=== PATIENT | female | born 1985 | race Caucasian/White ===

== ENCOUNTER 2020-03-10 15:33 | Inpatient (IN) | payer BC ==
[2020-03-10] MEDS ORDERED: ELECTROLYTE-148 SOLN 1,000 ML IV SCH (16:10)
[2020-03-10 16:32] VITALS: BMI 23.8
[2020-03-10] MEDS ORDERED: FENTANYL/BUPIVACAINE/NS/PF - PCEA - 50 ML DISP.SYRIN EP ONE (16:36)
[2020-03-10] MEDS ORDERED: OXYTOCIN 20 UNITS in 0.9% NS 20 UNIT/1,000 ML INFUS.BAG IV ONE ×2 (16:51→17:57)
[2020-03-10] MEDS ORDERED: LIDOCAINE HCL 1% PRESERVATIVE FREE - 30ML VIAL ONE (16:51)
[2020-03-10 16:55] LABS: INR 0.9 (0.83-1.09); PROTHROMBIN TIME (PATIENT) 10.6 SEC (9.7-13.0)
[2020-03-10 16:57] LABS: ACTIVATED PTT 24.6 SECONDS (25.2-36.5)
[2020-03-10 17:01] LABS: BASO % 0.3 % (0-2.0); EOS % 0.1 % (0-4.5); HEMATOCRIT 40.3 % (32.4-45.2); LYMPH % 14.4 % (8-40); MCH 34.1 pg (25.7-33.7); MCHC 34.7 g/dl (32.0-36.0); MEAN CELL VOLUME 98.4 fl (80-96); MEAN PLT VOLUME 9.9 fl (7.5-11.1); MONO % 7.9 % (3.8-10.2); NEUT % 77.3 % (42.8-82.8); PLATELET COUNT 162 K/MM3 (134-434); RBC 4.09 M/mm3 (3.60-5.2); RDW 13.2 % (11.6-15.6); WHITE BLOOD COUNT 8.6 K/mm3 (4.0-10.0)
[2020-03-10 17:09] LABS: BLOOD UREA NITROGEN 16.2 mg/dL (7-18); CREATININE 0.9 mg/dL (0.55-1.3); POTASSIUM 3.8 mmol/L (3.5-5.1)
[2020-03-10] MEDS ORDERED: BISACODYL 10 MG SUPP.RECT RC PRN (17:15)
[2020-03-10] MEDS ORDERED: WITCH HAZEL 50% (TUCKS) 40 PAD/JAR PAD TP PRN (17:15)
[2020-03-10] MEDS ORDERED: ACETAMINOPHEN 325 MG TABLET (FP) PO PRN (17:15)
[2020-03-10] MEDS ORDERED: BENZOCAINE 20% 57 GM BOTTLE TP PRN (17:15)
[2020-03-10] MEDS ORDERED: oxyCODONE HCL 5 MG TABLET PO PRN (17:15)
[2020-03-10] MEDS ORDERED: METHYLERGONOVINE MALEATE 0.2 MG/1 ML AMP IM PRN (17:15)
[2020-03-10] MEDS ORDERED: IBUPROFEN 600 MG TABLET (FP) PO PRN (17:15)
[2020-03-10] MEDS ORDERED: BENZOCAINE 28 GM HEMORRHOIDAL OINTMENT TP PRN (17:15)
[2020-03-10] MEDS ORDERED: OXYTOCIN 20 UNITS in 0.9% NS 20 UNIT/1,000 ML INFUS.BAG IV SCH ×2 (17:15→17:45)
--- NOTE | 2020-03-10 18:56 | HP ---
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: Alzheimer's, CVA, Dementia, Migraine, Multiple Sclerosis, Peripheral Neuropathy, Parkinson's, Seizure, Syncope, TIA, Vertigo, Other Cardiovascular: No: AFIB, Aneurysm, Aortic Insufficiency, Aortic Stenosis, CAD, CHF, Deep Vein Thrombosis, HTN, Hyperlipdemia, IA, Mitral Insufficiency, Mitral Stenosis, Murmur, Pulmonary Hypertension, Other Pulmonary: No: Asthma, Bronchitis, Cancer, COPD, O2 Dependent, Pneumonia, Previously Intubated, Pulmonary Embolus, Pulmonary Fibrosis, Sleep Apnea, Other Gastrointestinal: No: Ascites, Cancer, Constipation, Crohn's Disease, Diverticulitis, Diverticulosis, Esophageal Varices, Gastritis, GERD, GI Bleed, Hemorrhoids, Hiatal Hernia, Inflamatory Bowel Disease, Irritable Bowel Disease, Pancreatitis, Peptic Ulcer Disease, Ulcerative Colitis, Other Hepatobiliary: No: Cirrhosis, Cholelithiasis, Cholecystitis, Choledocholithiasis, Hepatitis A, Hepatitis B, Hepatitis C, Other Renal/: No: Renal Failure, Renal Inusuff, BPH, Cancer, Hematuria, Hemodialys is, Neurogenic Bladder, Renal Calculi, UTI, Other Reproductive: No: Ectopic , Endometriosis, Fibroids, PID, Polycystic Ovary Syndrome, Postmenopausal, Other ...: 4 ...Para: 2 ...Term: 2 ...: 0 ...Spon : 1 ...Induced : 0 ...Living Children: 0 ...Multiple Gestation: 0 ...LMP: 06/04/19 ... Weeks Gestation by Dates: 39.5 ...EDC by Dates: 03/12/20 ...EDC by Sono: 03/12/20 Heme/Onc: No: Anemia, B12 Deficiency, Bleeding Disorder, Cancer, Current Chemotherapy, Current Radiation Therapy, Hemochromatosis, Hypercoaguable State, Myeloproliferative Synd, Sickle Cell Disease, Sickle Cell Trait, Thrombocytopenia, Other Infectious Disease: No: AIDS, C-Diff, Herpes Zoster, HIV, MRSA, STD's, Tub erculosis, VREF, Other Psych: No: Addictions, Anxiety, Bipolar, Depression, Panic, Psychosis, Schizophrenia, Other Musculoskeletal: No: Bursitis, Chronic low back pain, Hemiparesis, Hemiplegia, Osteoarthritis, Paraplegia, Other Rheumatology: No: Fibromyalgia, Gout, Lupus, Rheumatoid Arthritis, Sarcoidosis, Vasculitis, Other ENT: No: Allergic Rhinitis, Sinusitis, Other Endocrine: No: Jimy's Disease, Marlow's Disease, Diabetes Insipidus, Diabetes Mellitus, Hyperparathyroidism, Hyperthyroidism, Hypothyroidism, Osteopenia, SIADH, Other Dermatology: No: Basal Cell, Cellulitis, Eczema, Melanoma, Psoriasis, Squamous Cell, Other - Past Surgical History Past Surgical History: No: None, AAA Repair, AICD, Amputation, Appendectomy, Arthrosocopy, AV Fistula/Graft, Bariatric Surgery, Breast Biopsy, Bypass, CABG, Carotid Endarterectomy, Cataract Removal, Cholecystectomy, Colectomy, Colonoscopy, Colostomy, Craniotomy, , Cystectomy, Hernia Repair, Hysterectomy, Ileal Conduit, Ileosotomy, Joint Replacement, Kidney Transplant, Laminectomy, Liver Transplant, Mastectomy, Nephrectomy, Oopherectomy, Orch iectomy, Permanent Pacemaker, Prostatectomy, Splenectomy, Stent, Thoracotomy, TURP, Tonsillectomy, Tubal Ligation, Upper Endoscopy, Valve Replacement, Vasectomy, Vein Stripping/Ligation Hx Myomectomy: No Hx Transabdominal Cerclage: No - Advance Directives Advance Directives: Yes: Living Will - Smoking History Smoking history: Never smoked Have you smoked in the past 12 months: No - Alcohol/Substance Use Hx Alcohol Use: No History of Substance Use: reports: None - Social History Usual Living Arrangement: Yes: With Significant Other Do you think of yourself as: Straight/Heterosexual ADL: Independent History of Recent Travel: No Home Medications - Allergies Allergies/Adverse Reactions: Allergies Allergy/AdvReac Type Severity Reaction Status Date / Time No Known Allergies Allergy Verified 03/10/20 16:18 - Home Medications Home Medications: Ambulatory Orders Vitamins (Sjr) - 1 tab PO DAILY 03/10/20 Family Medical History Family History: Denies Review of Systems - Review of Systems Constitutional: reports: No Symptoms Eyes: reports: No Symptoms HENT: reports: No Symptoms Neck: reports: No Symptoms Cardiovascular: reports: No Symptoms Respiratory: reports: No Symptoms Gastrointestinal: reports: No Symptoms Genitourinary: reports: No Symptoms Breasts: reports: No Symptoms Reported Musculoskeletal: reports: No Symptoms Integumentary: reports: No Symptoms Neurological: reports: No Symptoms Endocrine: reports: No Symptoms Hematology/Lymphatic: reports: No Symptoms Psychiatric: reports: No Symptoms Physical Exam - Maternity Vital Signs: Vital Signs Temperature 97.7 F 03/10/20 17:45 Pulse Rate 79 03/10/20 17:45 Respiratory Rate 03/10/20 17:45 Blood Pressure 117/66 03/10/20 17:45 O2 Sat by Pulse Oximetry (%) Constitutional: Yes: Well Nourished, No Distress, Calm Eyes: Yes: WNL, Conjunctiva Clear, EOM Intact HENT: Yes: WNL, Atraumatic, Normocephalic Neck: Yes: WNL, Supple, Trachea Midline Cardiovascular: Yes: WNL, Regular Rate and Rhythm Lungs: Clear to auscultation Breast(s): Yes: WNL - Abdominal Exam/OB Fundal Height: 38 Number of Fetuses: Single Presentation: Vertex Contractions: Yes Regularity: Regular Intensity: Mod/Strong Monitor Mode: External Heart Rate (range): 150 Heart Rate Location: [facility] Category: I Accelerations: Uniform Decelerations: None - Vaginal Exam/OB Vaginal Bleeding: No Speculum Exam: No Dilatation (cm): 7 Effacement (%): 90 Amniotic Membrane Status: Intact Presentation: Vertex/Position Station: 0 - Physical Exam Musculoskeletal: Yes: WNL Extremities: Yes: WNL Edema: Yes Integumentary: Yes: WNL Deep Tendon Reflex Grade: Normal +2 ...Motor Strength: WNL Psychiatric: Yes: WNL, Alert, Oriented - Labs Lab Results: CBC, BMP 03/10/20 15:15 03/10/20 15:47 Hemorrhage Risk Assessment - Risk Factors Medium Risk Factors: Yes: None High Risk Factors: Yes: None Risk Score: 1 Risk Level: Medium Risk Assessment/Plan precip delivery for
--- NOTE | 2020-03-10 18:57 | PN ---
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
[2020-03-10] MEDS ORDERED: DEXTROSE 5%-LACTATED RINGERS 1,000 ML IV SCH (19:00)
[2020-03-11 08:48] LABS: BASO % 0.3 % (0-2.0); EOS % 0.3 % (0-4.5); HEMOGLOBIN 12.5 GM/dL (10.7-15.3); LYMPH % 13.3 % (8-40); MCHC 35.7 g/dl (32.0-36.0); MEAN PLT VOLUME 10.2 fl (7.5-11.1); MONO % 8.3 % (3.8-10.2); NEUT % 77.8 % (42.8-82.8); PLATELET COUNT 134 K/MM3 (134-434); RBC 3.58 M/mm3 (3.60-5.2); RDW 13.2 % (11.6-15.6); WHITE BLOOD COUNT 8.8 K/mm3 (4.0-10.0)
[2020-03-11] MEDS: PRENATAL VITAMINS W/ FOLIC ACID TABLET (FP) PO SCH (09:37)
[2020-03-11] MEDS ORDERED: DIPHTH,PERTUSS(ACELL),TET 0.5 ML DISP.SYRIN IM ONE (11:00)
--- NOTE | 2020-03-11 20:47 | PN ---
Post Progress Note Post Day: 1 Type of Delivery: Vital Signs: Vital Signs Temperature 98.2 F 03/11/20 17:29 Pulse Rate 67 03/11/20 17:29 Respiratory Rate 17 03/11/20 17:29 Blood Pressure 106/64 03/11/20 17:29 O2 Sat by Pulse Oximetry (%) 100 03/11/20 17:29 Breast Exam: Yes: Soft Uterus: Yes: Fundus Firm, Fundus below umbilicus, Non-tender Abdomen/GI: Yes: Abdomen soft, Passing flatus, Tolerating PO Lochia: Yes: Serosa Lochia, amount: Small Extremities: Yes: Calves non-tender Perineum: Yes: Episiotomy Activity: Ambulating - Labs Labs: CBC WBC 8.8 K/mm3 (4.0-10.0) 03/11/20 07:43 RBC 3.58 M/mm3 (3.60-5.2) L 03/11/20 07:43 Hgb 12.5 GM/dL (10.7-15.3) 03/11/20 07:43 Hct 35.0 % (32.4-45.2) 03/11/20 07:43 MCV 98.0 fl (80-96) H 03/11/20 07:43 MCH 35.0 pg (25.7-33.7) H 03/11/20 07:43 MCHC 35.7 g/dl (32.0-36.0) 03/11/20 07:43 RDW 13.2 % (11.6-15.6) 03/11/20 07:43 Plt Count 134 K/MM3 (134-434) 03/11/20 07:43 MPV 10.2 fl (7.5-11.1) 03/11/20 07:43 Absolute Neuts (auto) 6.9 K/mm3 (1.5-8.0) 03/11/20 07:43 Neutrophils % 77.8 % (42.8-82.8) 03/11/20 07:43 Lymphocytes % 13.3 % (8-40) 03/11/20 07:43 Monocytes % 8.3 % (3.8-10.2) 03/11/20 07:43 Eosinophils % 0.3 % (0-4.5) D 03/11/20 07:43 Basophils % 0.3 % (0-2.0) 03/11/20 07:43 Nucleated RBC % 0 % (0-0) 03/11/20 07:43 Assessment/Plan doing well, dc pt home tomorrow
--- NOTE | 2020-03-11 20:49 | DS ---
Physical Exam-SMALL PARTS ASSEMBLER Vital Signs: Vital Signs Temperature 98.2 F 03/11/20 17:29 Pulse Rate 67 03/11/20 17:29 Respiratory Rate 17 03/11/20 17:29 Blood Pressure 106/64 03/11/20 17:29 O2 Sat by Pulse Oximetry (%) 100 03/11/20 17:29 Constitutional: Yes: Well Nourished, No Distress, Calm Eyes: Yes: WNL, Conjunctiva Clear, EOM Intact HENT: Yes: WNL, Atraumatic, Normocephalic Neck: Yes: WNL, Supple, Trachea Midline Cardiovascular: Yes: WNL, Regular Rate and Rhythm Respiratory: Yes: WNL, Regular, CTA Bilaterally Gastrointestinal: Yes: WNL, Normal Bowel Sounds, Soft ...Rectal Exam: Yes: WNL Renal/: Yes: WNL Pelvis: Yes: WNL External Genitalia: Yes: Normal Internal Exam Deferred: Yes Vaginal Exam: Yes: Normal Cervix: Yes: Normal Uterus: Yes: Normal Adnexa: Normal: Bilateral ....Post : Yes: Uterus firm, Uterus non-tender Breast(s): Yes: WNL Musculoskeletal: Yes: WNL Extremities: Yes: WNL Edema: Yes Integumentary: Yes: WNL Wound/Incision: Yes: Clean/Dry, Well Approximated Neurological: Yes: WNL, Alert, Oriented ...Motor Strength: WNL Psychiatric: Yes: WNL, Alert, Oriented Labs: CBC, BMP 03/11/20 07:43 03/10/20 15:47 Delivery - Delivery Vaginal Delivery: No Problems Type of Anesthesia: Local Episiotomy/Laceration: Right Mediolateral EBL (cc): 300 Delivery, Single - Stages of Labor Date 1st Stage Initiatied: 03/10/20 Time 1st Stage Initiated: 08:30 Date 2nd Stage Initiated: 03/10/20 Time 2nd Stage Initiated: 16:44 Date of Delivery: 03/10/20 Time of Delivery: 16:45 Time Placenta Delivered: 16:50 Placenta: Yes: Spontaneous - 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 You may walk unlimited billy of and climb stairs. You may resume driving the car when you feel safe and comfortable behind the wheel. No sexual activity as instructed. Wound care If you have a bandage, leave it on, and keep dry for 48-72 hours. After that time discard the outer bandage. If they are tapes on the skin under the out of bandage leave them in place. They will peel off in the next 7 to 10 days. Do Not Peel them off. You may shower the day after surgery. If there are tapes present on the skin, you may shower over them. Diet There are no dietary restrictions. Eat healthy, high-fiber foods. Drink 6 to 8 glasses of liquid each day. This will assist in keeping your bowels are regular. Pain management You may take Tylenol or acetaminophen or Ibuprofen (for example, Motrin, Advil etc.) from my pain prescription medication is ordered should be taken as prescribed for moderate to severe pain. Call MD for any of the following:call dr barrow for 6 weeks appointment Severe pain not relieved by medication Fever of 101 or higher Excessive bleeding or drainage on dressing Inability to urinate Disposition: HOME - Home Medications Comprehensive Discharge Medication List: Ambulatory Orders Vitamins (Sjr) - 1 tab PO DAILY 03/10/20 Prescription Drug Monitoring Program (I-STOP) results: I-STOP reviewed and no issues identified
[2020-03-11] MEDS ORDERED: SENNOSIDES/DOCUSATE COMBO (SENNA PLUS) TABLET (UD) PO PRN (22:00)
--- NOTE | 2020-03-12 08:08 | PN ---
Post Progress Note Post Day: 2 Type of Delivery: Vital Signs: Vital Signs Temperature 98.4 F 03/11/20 21:00 Pulse Rate 64 03/11/20 21:00 Respiratory Rate 18 03/11/20 21:00 Blood Pressure 110/68 03/11/20 21:00 O2 Sat by Pulse Oximetry (%) 100 03/11/20 17:29 Breast Exam: Yes: Soft Uterus: Yes: Fundus Firm, Fundus below umbilicus, Non-tender Abdomen/GI: Yes: Abdomen soft, Passing flatus, Tolerating PO Lochia: Yes: Serosa Lochia, amount: Small Extremities: Yes: Calves non-tender Activity: Ambulating (dc pt home today ) - Labs Labs: CBC WBC 8.8 K/mm3 (4.0-10.0) 03/11/20 07:43 RBC 3.58 M/mm3 (3.60-5.2) L 03/11/20 07:43 Hgb 12.5 GM/dL (10.7-15.3) 03/11/20 07:43 Hct 35.0 % (32.4-45.2) 03/11/20 07:43 MCV 98.0 fl (80-96) H 03/11/20 07:43 MCH 35.0 pg (25.7-33.7) H 03/11/20 07:43 MCHC 35.7 g/dl (32.0-36.0) 03/11/20 07:43 RDW 13.2 % (11.6-15.6) 03/11/20 07:43 Plt Count 134 K/MM3 (134-434) 03/11/20 07:43 MPV 10.2 fl (7.5-11.1) 03/11/20 07:43 Absolute Neuts (auto) 6.9 K/mm3 (1.5-8.0) 03/11/20 07:43 Neutrophils % 77.8 % (42.8-82.8) 03/11/20 07:43 Lymphocytes % 13.3 % (8-40) 03/11/20 07:43 Monocytes % 8.3 % (3.8-10.2) 03/11/20 07:43 Eosinophils % 0.3 % (0-4.5) D 03/11/20 07:43 Basophils % 0.3 % (0-2.0) 03/11/20 07:43 Nucleated RBC % 0 % (0-0) 03/11/20 07:43
[2020-03-12] MEDS: PRENATAL VITAMINS W/ FOLIC ACID TABLET (FP) PO SCH (09:57)
[2020-03-12 12:35] VITALS: BP 118/62; PULSE 70; TEMP 97.9
== END 2020-03-12 13:35 | disposition home or self-care (01) | DRG 807 ==
LOC: JLDR 15:33 → J3W 19:52
PROVIDERS: ADMIT Obstetrics & Gynecology; ATTEND Obstetrics & Gynecology
PROC: 10E0XZZ Delivery of Products of Conception, External Approach (ICD-10-PCS; principal; 2020-03-10)
PROC: 0W8NXZZ Division of Female Perineum, External Approach (ICD-10-PCS; 2020-03-10)
DX: O80 Encounter for full-term uncomplicated delivery (principal); Z37.0 Single live birth; Z3A.39 39 weeks gestation of pregnancy
CPT/HCPCS: 36415; 59409; 80048; 85025; 85610; 85730; 86780; 86850; 86900; 86901; 87389; 90715; U0003